=== PATIENT | female | born 1990 | race Caucasian/White ===

== ENCOUNTER 2021-06-26 12:38 | Emergency (ER) | payer OTHER ==
[~2021-06-26] VITALS: Ht 154.9 cm; Wt 63.5 kg
[~2021-06-26 12:38] MED LIST: FLAGYL500 MG PO; MEDROXYPROGESTERONE; NOHOMEMEDICATIONS; NORCO 5-325 TA1 EACH PO
[2021-06-26] MEDS ORDERED: MUPIROCIN15 GM TOP (14:38)
[2021-06-26] MEDS ORDERED: BACTRIM DS TAB1 EACH PO (14:38)
[2021-06-26 14:48] VITALS: BP 124/70
== END 2021-06-26 14:48 | disposition home or self-care (01) ==
LOC: M.ERS 12:38
DX: L03.211 Cellulitis of face (principal); Z88.5 Allergy status to narcotic agent; Z88.6 Allergy status to analgesic agent; Z91.013 Allergy to seafood